=== PATIENT | male | born 1955 | race Caucasian/White ===

== ENCOUNTER → 2018-04-24 | Outpatient (CLI) | payer MEDICARE, OTHER ==
--- NOTE | 2018-04-24 15:54 | RAD ---
History: Pain, recent fall. Comparison: None. Findings: PA and lateral views of the left wrist. Evaluation for acute traumatic injury is limited by lack of 3rd view. On the lateral view, small lucency is seen involving the dorsal aspect the proximal carpal row, compatible with nondisplaced triquetral fracture. There is dorsal soft tissue swelling. Impression: Nondisplaced triquetral fracture. Electronically signed by: Zac Porras MD (04/24/2018 3:51 PM) [place] [id number]
--- NOTE | 2018-04-24 17:46 | RAD ---
RIBS LEFT AND PA CHEST History: Recent fall, rib pain, chest pain Comparison: January 02, 2014 Findings: Single view of the chest and 4 additional views left ribs are submitted. There is no lobar consolidation, pleural fluid, pneumothorax. Heart size is somewhat enlarged although stable. No displaced left rib fracture is identified. Impression: 1. No displaced left rib fracture is identified. Electronically signed by: Singh Billings MD (04/24/2018 5:43 PM) [id number]
== END | disposition home or self-care (01) ==
LOC: RAD 08:45
PROVIDERS: ATTEND Physician Assistant Medical
DX: S62.115A Nondisplaced fracture of triquetrum [cuneiform] bone, left wrist, initial encounter for closed fracture (principal); R07.89 Other chest pain; W19.XXXA Unspecified fall, initial encounter; Y93.89 Activity, other specified; Y92.89 Other specified places as the place of occurrence of the external cause; Y99.8 Other external cause status
CPT/HCPCS: 71101; 73100

== ENCOUNTER → 2018-05-24 | Outpatient (CLI) | payer MEDICARE, OTHER ==
--- NOTE | 2018-05-24 16:18 | RAD ---
Left wrist 3 views. HISTORY: Left wrist pain 3 views were taken of the left wrist. On the lateral view there is a subtle defect at the posterior triquetrum possibly a nondisplaced fracture. No other fracture or osseous abnormality is noted. IMPRESSION: 1. Slight irregularity of the triquetrum on the lateral view possible nondisplaced fracture. 2. No other acute osseous abnormality. Electronically signed by: Brian Baig MD (05/24/2018 4:14 PM) [id number]
== END | disposition home or self-care (01) ==
LOC: PMG 15:15
PROVIDERS: ATTEND Physician Assistant Medical
DX: M25.532 Pain in left wrist (principal)
CPT/HCPCS: 73110